=== PATIENT | male | born 1985 | race Caucasian/White ===

== ENCOUNTER 2018-09-22 10:05 | Emergency (ER) | payer OTHER ==
[2018-09-22 10:09] VITALS: BP 120/76; PULSE 63; BMI 30.8
[2018-09-22] MEDS ORDERED: ACETAMINOPHEN 325 MG TABLET (FP) PO ONE (10:12)
[2018-09-22] MEDS ORDERED: ACETAMINOPHEN 325 MG TABLET (FP) ONE (10:25)
--- NOTE | 2018-09-22 10:29 | PDOC ---
History of Present Illness - General Chief Complaint: Injury Stated Complaint: INJURY Time Seen by Provider: 09/22/18 10:12 History Source: Patient Exam Limitations: No Limitations - History of Present Illness Initial Comments: 09/22/18 10:24 33 yr male [employer] at work today when a ladder was being folded and fell hit him on top of his head wearing baseball cap not helmet. no LOC. no vomiting. Pt c/o feeling "dizzy" only had coffee this am no food as of yet. Pt has no PMHX. no allergies. Past History - Past Medical History Allergies/Adverse Reactions: Allergies Allergy/AdvReac Type Severity Reaction Status Date / Time hops Allergy Verified 09/22/18 10:07 lactose Allergy Verified 09/22/18 10:07 seasonal Allergy Uncoded 09/22/18 10:07 Home Medications: Ambulatory Orders Acetaminophen [Tylenol] 325 mg PO PRN PRN 07/12/16 Albuterol Sulfate Inhaler - [Ventolin Hfa Inhaler -] 1 - 2 inh PO DAILY PRN 11/26 Lactase [Lactaid] 3,000 unit PO PRN 07/12/16 Anemia: No Asthma: No ("small airway disease") Cancer: No Cardiac Disorders: No CVA: No COPD: No CHF: No Dementia: No Diabetes: No GI Disorders: No Disorders: No HTN: No Hypercholesterolemia: No Liver Disease: No Seizures: No Thyroid Disease: No - Suicide/Smoking/Psychosocial Hx Smoking History: Never smoked Have you smoked in the past 12 months: No Cigars Per Day: 1 'Breaking Loose' booklet given: 07/12/16 Hx Alcohol Use: No Drug/Substance Use Hx: No Substance Use Type: None *Physical Exam - Vital Signs Last Vital Signs Temp Pulse Resp BP Pulse Ox 63 18 120/76 99 09/22/18 10:08 09/22/18 10:08 09/22/18 10:08 09/22/18 10:08 - Physical Exam General Appearance: Yes: Nourished, Appropriately Dressed HEENT: positive: EOMI, JANET, Normal ENT Inspection, TMs Normal, Pharynx Normal Neck: positive: Supple, Other (FROM neg tenderness ). negative: Tender, Tender lateral Respiratory/Chest: positive: Lungs Clear, Normal Breath Sounds. negative: Chest Tender Cardiovascular: positive: Regular Rhythm, Regular Rate Gastrointestinal/Abdominal: positive: Normal Bowel Sounds, Soft Musculoskeletal: positive: Normal Inspection Extremity: positive: Normal Capillary Refill, Normal Inspection, Normal Range of Motion Integumentary: positive: Normal Color, Dry, Warm Neurologic: positive: Fully Oriented, Alert, Normal Mood/Affect, Normal Response , Motor Strength 03/15 Medical Decision Making - Medical Decision Making 09/22/18 10:26 cc: head injury at work ladder fell on head no LOC, no palpable hematoma , skin intact no redness to scalp no LOC no vomiting , pt is AOX3 will give tylenol strict head injury dc inst verbally discussed pt placed off duty until cleared by employee health pt understands the plan all questions asked and answered 09/22/18 10:45 *DC/Admit/Observation/Transfer Diagnosis at time of Disposition: Head injury due to trauma Qualifiers: Encounter type: initial encounter Qualified Code(s): S09.90XA - Unspecified injury of head, initial encounter - Discharge Dispostion Disposition: HOME Condition at time of disposition: Good - Referrals - Patient Instructions Printed Discharge Instructions: DI for Closed Head Injury Additional Instructions: take tylenol 650mg every 4-6hrs for pain or headache drink pleanty of water today avoid caffeine and alcohol for the next 24-48hrs return to ER for any vomiting severe headache go to Employee Health for follow up to be cleared for return to work - Post Discharge Activity Forms/Work/School Notes: Back to Work
== END 2018-09-22 10:46 | disposition home or self-care (01) ==
LOC: JERFT 10:05
DX: S09.8XXA Other specified injuries of head, initial encounter (principal); W22.8XXA Striking against or struck by other objects, initial encounter; Y93.89 Activity, other specified; Y92.29 Other specified public building as the place of occurrence of the external cause; Y99.0 Civilian activity done for income or pay
CPT/HCPCS: 99281-25